=== PATIENT | male | born 1970 | race Caucasian/White ===

== ENCOUNTER 2023-01-01 09:24 | Outpatient (CLI) | payer MEDICARE, SELFPAY ==
[2023-01-01 19:05] LABS: Hematocrit 47.1 % (42.0-52.0); Hemoglobin 14.2 g/dL (14.0-18.0); Mean Corpuscular HGB Conc 30.1 g/dl (32-36); Mean Corpuscular Hemoglobin 28.7 pg (26-34); Mean Corpuscular Volume 95.3 fl (80-100); Mean Platelet Volume 10.8 fl (7.4-10.4); Platelet Count Result 222 k/mm3 (150-375); Red Blood Count 4.94 M/mm3 (4.6-6.20); Red Cell Distribution Width 14.7 % (11.5-14.5)
[2023-01-01 19:53] LABS: Alanine Aminotransferase 25 U/L (6-50); Albumin Level 4.4 g/dL (3.5-5.1); Alkaline Phosphatase 83 U/L (38-126); Anion Gap 8 mmol/L (8-16); Aspartate Amino Transferase 57 U/L (17-59); Bilirubin,Total 0.5 mg/dL (0.2-1.3); Blood Urea Nitrogen 27 mg/dL (9-20); Calcium 9.2 mg/dL (8.4-10.2); Carbon Dioxide 30 mmol/L (22-30); Chloride 101 mmol/L (98-107); Cholesterol 207 mg/dL (0-200); Estimated Glomerular Filt Rate 46; Glucose 101 mg/dL (65-110); HDL Direct 30 mg/dL; Potassium 4.3 mmol/L (3.4-5.0); Sodium 139 mmol/L (137-145); Triglycerides 194 mg/dL (<150)
[2023-01-01 20:03] LABS: LDL Cholesterol Direct 125 mg/dL
[2023-01-01 20:22] LABS: Prostate Specific Antigen 0.6 ng/mL (< OR = 4.0)
[2023-01-01 20:30] LABS: Free T4 Free Thyroxine 1.18 ng/mL (0.78-2.19)
[2023-01-02 00:18] LABS: Hemoglobin A1C 5.7 % (<5.7)
[2023-01-04 12:34] LABS: Insulin Level Total 28.4 uIU/mL (<=19.6)
[2023-01-05 05:21] LABS: Thyroid Peroxidase Antibodies <1 IU/mL (<9)
[2023-01-05 15:14] LABS: Testosterone Free 7.7 pg/mL (35.0-155.0); Testosterone Total 44 ng/dL (250-1100)
== END 2023-01-01 09:25 | disposition home or self-care (01) ==
PROVIDERS: PCP Nurse Practitioner Adult Health; Visit Provider Nurse Practitioner Adult Health
DX: I50.9 Heart failure, unspecified (principal); E66.01 Morbid (severe) obesity due to excess calories; Z12.5 Encounter for screening for malignant neoplasm of prostate; Z79.899 Other long term (current) drug therapy
CPT/HCPCS: 36415; 80053; 80061; 83036; 83525; 84153; 84402; 84403; 84439; 84443; 85027; 86376; G0103